=== PATIENT | female | born 1955 | race Caucasian/White ===

== ENCOUNTER → 2024-08-25 | Outpatient (CLI) | payer BC ==
[~2024-08-25] MED LIST: PROHANCE 279.3MG/ML 15ML VIAL ONE
== END ==
LOC: M PLAIMG 09:40
PROVIDERS: ATTEND Physician Assistant
DX: M25.551 Pain in right hip (principal)

== ENCOUNTER → 2025-09-02 | Outpatient (CLI) | payer BC, MEDICARE | LOC: M RAD 12:31 | PROVIDERS: ATTEND Physician Assistant Medical | DX: Z86.718 Personal history of other venous thrombosis and embolism (principal) ==